=== PATIENT | female | born 1965 | race Caucasian/White ===

== ENCOUNTER 2022-03-06 05:31 | Inpatient (IN) | payer BC ==
[2022-03-06 05:39] VITALS: BMI 20.5
[2022-03-06] MEDS ORDERED: morphine SULFATE 4 MG/ML VIAL ONE (05:45)
[2022-03-06] MEDS ORDERED: KETOROLAC TROMETHAMINE 30 MG/1 ML VIAL ONE (05:45)
[2022-03-06] MEDS ORDERED: KETOROLAC TROMETHAMINE 30 MG/1 ML VIAL IVPUSH ONE (05:46)
[2022-03-06] MEDS ORDERED: morphine CARPU-JECT 4 MG/1 ML DISP.SYRIN IVPUSH ONE (05:46)
[2022-03-06] MEDS ORDERED: ONDANSETRON 4 MG/2 ML VIAL IVPB ONE (05:50)
[2022-03-06] MEDS ORDERED: ONDANSETRON 4 MG/2 ML VIAL ONE (05:51)
[2022-03-06 06:55] LABS: BASO % 1.3 % (0-2.0); EOS % 4.9 % (0-4.5); HEMATOCRIT 38.9 % (32.4-45.2); HEMOGLOBIN 12.9 GM/dL (10.7-15.3); LYMPH % 43.7 % (8-40); MCH 30.8 pg (25.7-33.7); MCHC 33.2 g/dl (32.0-36.0); MEAN CELL VOLUME 92.8 fl (80-96); MEAN PLT VOLUME 9.4 fl (7.5-11.1); MONO % 6.5 % (3.8-10.2); NEUT % 43.6 % (42.8-82.8); PLATELET COUNT 269 10^3/uL (134-434); RBC 4.19 M/mm3 (3.60-5.2); RDW 12.8 % (11.6-15.6); WHITE BLOOD COUNT 9.1 K/mm3 (4.0-10.0)
[2022-03-06 07:16] LABS: CHLORIDE 106 mmol/L (98-107); SODIUM 139 mmol/L (136-145)
[2022-03-06 07:18] LABS: ALBUMIN 3.6 g/dl (3.4-5.0); BLOOD UREA NITROGEN 24.1 mg/dL (7-18); CALCIUM 9.1 mg/dL (8.5-10.1); CO2 26 mmol/L (21-32); GLUCOSE,RANDOM 166 mg/dL (74-106); LIPASE 136 U/L (73-393)
[2022-03-06 07:21] LABS: SGOT/AST 66 U/L (15-37); SGPT/ALT 51 U/L (13-61)
[2022-03-06 07:23] LABS: BILIRUBIN,TOTAL 0.3 mg/dL (0.2-1); TOT PROT 7.2 g/dl (6.4-8.2)
[2022-03-06 07:24] LABS: ALK PHOS 129 U/L (45-117)
[2022-03-06 07:28] LABS: ANION GAP 8 MMOL/L (8-16)
[2022-03-06] MEDS ORDERED: ACETAMINOPHEN 1000 MG/100 ML BAG IVPB ONE ×2 (07:43→22:29)
[2022-03-06] MEDS ORDERED: HYDROmorphone HCL CARPU-JECT 1 MG/1 ML DISP.SYRIN IVPUSH ONE ×2 (07:43→10:09)
[2022-03-06] MEDS ORDERED: HYDROmorphone HCL/PF 1 MG/ML VIAL ONE (07:52)
[2022-03-06] MEDS ORDERED: ACETAMINOPHEN INJECTION 100 ML IVPB ONE (07:52)
[2022-03-06 10:35] LABS: INR 0.97 (0.83-1.09); PROTHROMBIN TIME (PATIENT) 11.2 SEC (9.7-13.0)
[2022-03-06 10:57] LABS: CALCIUM 8.4 mg/dl (8.5-10); CREATININE 1.1 mg/dl (0.55-1.3)
[2022-03-06 11:23] LABS: CALCIUM OXALATE CRYSTALS FEW /hpf (NONE SEEN); EPITHELIAL CELLS FEW /hpf
[2022-03-06] MEDS ORDERED: morphine SULFATE 4 MG/ML VIAL IVPUSH PRN (15:18)
[2022-03-06] MEDS ORDERED: ACETAMINOPHEN 325 MG TABLET (FP) PO PRN (15:18)
[2022-03-06] MEDS ORDERED: ONDANSETRON 4 MG/2 ML VIAL IVPUSH PRN (15:18)
[2022-03-06] MEDS ORDERED: SODIUM CHLORIDE 1,000 ML IV SCH (15:30)
[2022-03-06] MEDS ORDERED: TAMSULOSIN HCL 0.4 MG CAP PO ONE (20:23)
[2022-03-07] MEDS ORDERED: SODIUM CHLORIDE 1,000 ML IV SCH (03:45)
[2022-03-07 06:03] VITALS: BP 102/50; PULSE 69; TEMP 98.2
[2022-03-07 07:57] LABS: BASO % 0.7 % (0-2.0); EOS % 4.9 % (0-4.5); HEMATOCRIT 31.8 % (32.4-45.2); HEMOGLOBIN 10.9 GM/dL (10.7-15.3); LYMPH % 45.2 % (8-40); MCH 31.6 pg (25.7-33.7); MCHC 34.3 g/dl (32.0-36.0); MEAN CELL VOLUME 92.1 fl (80-96); MEAN PLT VOLUME 8.6 fl (7.5-11.1); MONO % 6.2 % (3.8-10.2); PLATELET COUNT 193 10^3/uL (134-434); RBC 3.46 M/mm3 (3.60-5.2); WHITE BLOOD COUNT 5.3 K/mm3 (4.0-10.0)
[2022-03-07] MEDS ORDERED: TAMSULOSIN HCL 0.4 MG CAP PO SCH (08:30)
[2022-03-07] MEDS ORDERED: ACETAMINOPHEN 325 MG TABLET (FP) PO PRN (08:36)
[2022-03-07 08:52] LABS: CALCIUM 7.9 mg/dL (8.5-10.1)
[2022-03-07 08:53] LABS: BLOOD UREA NITROGEN 17.4 mg/dL (7-18)
[2022-03-07 08:56] LABS: CREATININE 0.7 mg/dL (0.55-1.3)
[2022-03-07 08:57] LABS: BILIRUBIN,TOTAL 0.5 mg/dL (0.2-1)
[2022-03-07 09:15] LABS: ALBUMIN 2.8 g/dl (3.4-5.0); TOT PROT 5.1 g/dl (6.4-8.2)
== END 2022-03-07 11:00 | disposition home or self-care (01) | DRG 694 ==
LOC: FER 05:31 → J4W 19:30
PROVIDERS: ADMIT Internal Medicine; ATTEND Internal Medicine
DX: N13.2 Hydronephrosis with renal and ureteral calculous obstruction (principal)
CPT/HCPCS: 0241U-QW; 36415; 74177-TC; 76830-TC; 80048; 80053; 81003; 81015; 83605; 83690; 85025; 85610; 86850; 86900; 86901; 87086; 99285-25; Q9967